=== PATIENT | female | born 2005 | race African-American/Black ===

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

== ENCOUNTER 2023-02-07 13:23 | Emergency (ER) | payer OTHER, SELFPAY ==
[2023-02-07 13:51] VITALS: BP 121/57; PULSE 104; RESP 16; TEMP 37.7; O2SAT 100
[2023-02-07 15:06] LABS: Appearance Urine Cloudy (Clear); Bacteria Urine 4+ /hpf; Bilirubin Urine Negative (Negative); Blood Urine 3+ (Negative); Color Urine Yellow (Yellow); Glucose Urine UA Negative (Negative); Ketones Urine Trace mg/dL (Negative); Leukocyte Esterase Ur 1+ LEU/UL (Negative); Nitrate Urine Negative (Negative); Non Pathogenic Casts 0-2; Protein Urine Negative (Negative); RBC Urine 0-2 /hpf (0-2); Specific Grav Ur 1.019 (1.001-1.035); Squamous Epithelial Cell Urine Moderate /hpf (Few)
[2023-02-07 15:38] LABS: Add Urine Microscopic? YES
--- NOTE | 2023-02-07 16:08 | ED.GENADULT ---
HPI - General Adult General Chief complaint: Upper Respiratory Infection Stated complaint: URI Time Seen by Provider: 02/07/23 14:38 Source: patient Mode of arrival: ambulatory Limitations: no limitations History of Present Illness HPI narrative: This is a 17-year-old female presents to the ED with chief complaint of URI symptoms x3 days. Patient has a sibling who is positive for COVID at home. Complains of cough congestion, runny nose, headaches. Denies fevers, chills, abdominal pain, N/V, chest pain, shortness of breath. Related Data Home Medications Medication Instructions Recorded Confirmed sumatriptan 20 mg/actuation nasal 20 mg intranasal DAILY 03/19/21 03/19/21 spray topiramate 25 mg tablet 25 mg PO HS PRN Headache 03/19/21 03/19/21 Allergies Allergy/AdvReac Type Severity Reaction Status Date / Time No Known Allergies Allergy Verified 03/19/21 17:29 Review of Systems Review of Systems: CONSTITUTIONAL: Denies fever, chills, or sweats. EYES: Denies visual changes, redness, or discharge. ENT: Endorses rhinorrhea, congestion, sore throat. Denies otalgia. CARDIOVASCULAR: Denies chest pain, palpitations, or edema. RESPIRATORY: Endorses cough. Denies dyspnea. GASTROINTESTINAL: Denies abdominal pain, nausea, vomiting, or diarrhea. GENITOURINARY: Denies dysuria or hematuria. SKIN: Denies rash or itching. MUSCULOSKELETAL: Denies back pain, joint pain, or myalgia. NEUROLOGIC: Denies headache, numbness, dizziness, or weakness. PSYCHIATRIC: Denies anxiety or depression. [facility] Past Medical History Medical History (Updated 02/07/23 @ 16:13 by Stevan Stearns PA-C) History of migraine Social History Social History (Updated 03/19/21 @ 17:16 by Cassie Hobbs PA-C) Smoking status: Never smoker Substance use: never Gender identity (if verbalized by the patient): Female Exam Narrative: GENERAL: Well-appearing, well-nourished, and in no acute distress. HEAD: Normocephalic, atraumatic. EYES: PERRLA and EOMI. ENT: Nares clear, no rhinorrhea or epistaxis. Mucous membranes moist. Oropharynx without tonsillar hypertrophy exudate or other lesions. Posterior oropharynx erythema is present. NECK: Supple. No adenopathy or masses. CHEST: No respiratory distress. Clear to auscultation. No wheezes rales or rhonchi. O2 sats 100% on room air. HEART: Regular rate and rhythm. No murmur heard. Normal peripheral pulses. ABDOMEN: Soft, nontender, nondistended, normal active bowel sounds. EXTREMITIES: Normal range of motion. No edema. SKIN: Warm, dry, no rash. NEURO: Alert and oriented x3. No focal deficits. PSYCH: Normal mood and affect. Course Vital Signs Vital signs: Vital Signs Temperature 99.8 F H 02/07/23 13:51 Pulse Rate 104 H 02/07/23 13:51 Respiratory Rate 16 02/07/23 13:51 Blood Pressure 121/57 L 02/07/23 13:51 Pulse Oximetry 100 02/07/23 13:51 Oxygen Delivery Room Air 02/07/23 13:51 Temperature 99.8 F H 02/07/23 13:51 Pulse Rate 104 H 02/07/23 13:51 Respiratory Rate 16 02/07/23 13:51 Blood Pressure 121/57 L 02/07/23 13:51 Pulse Oximetry 100 02/07/23 13:51 Oxygen Delivery Room Air 02/07/23 13:51 Medical Decision Making [facility] Narrative Medical decision making narrative: This is a 17-year-old female with URI symptoms x3 days. Vitals are stable. Slightly febrile at 99.8. Exam is benign. Declines swab as her brother is confirmed positive. RN placed an order for urinalysis due to patient having low back pain. This pain is consistent with body aches with viral syndrome. Very low likelihood of urinary tract infection present. Supportive measures at home discussed. Would like for her to follow-up with her PCP. Return precautions given. Patient is understanding and agreeable with plan for discharge. Rx for guaifenesin given. Vital Signs Vital Signs: Vital Signs Temperature 99.8 F H 02/07/23 13:51 Pulse Rate 104 H 02/07/23 13:51 Respiratory Rat
== END 2023-02-07 16:23 | disposition home or self-care (01) ==
PROVIDERS: Emergency Provider Physician Assistant
DX: J06.9 Acute upper respiratory infection, unspecified (principal)
CPT/HCPCS: 81001; 87086; 87088; 99283

== ENCOUNTER 2025-01-21 14:12 | Emergency (ER) | payer MEDICAID, SELFPAY ==
--- NOTE | 2025-01-21 14:17 | ED_ITS ---
HPI - URI/Sore Throat General Chief Complaint: Upper Respiratory Infection Stated Complaint: shortness of breath Time Seen by Provider: 01/21/25 14:30 Source: patient, RN notes reviewed and old records reviewed Mode of arrival: ambulatory Limitations: no limitations History of Present Illness HPI Narrative: 19-year-old female presents to the [facility] with complaints of intermittent coughing fits for the last 4 months. Saint since he has taken Tylenol. Has not seen her. Denies any chest pain or current shortness of breath. States that she is short of breath after coughing. Onset (ago): month(s) (4) Treatments prior to arrival: acetaminophen Related Data Home Medications ?Medication ?Instructions ?Recorded ?Confirmed ?Last Taken ?Type sumatriptan 20 mg/actuation nasal 20 mg intranasal DAILY 03/19/21 03/19/21 Unknown History spray topiramate 25 mg tablet 25 mg PO HS PRN Headache 03/19/21 03/19/21 Unknown History Allergies Allergy/AdvReac Type Severity Reaction Status Date / Time No Known Allergies Allergy Verified 01/21/25 14:28 Review of Systems Review of Systems: All systems reviewed & are unremarkable except as noted in HPI and below Constitutional: Constitutional: Reports no additional constitutional complaints ENT: Reports system reviewed and no additional complaints, except as documented Cardiovascular: Cardiovascular: Reports no additional cardiovascular complaints, Denies chest pain and Denies dyspnea Respiratory: Respiratory: Reports as per HPI, Denies chest congestion, Reports cough and Denies dyspnea Musculoskeletal: Musculoskeletal: Reports no additional musculoskeletal complaints Integumentary/Breasts: Skin/Breast: Reports system reviewed and no additional complaints, except as docu PMFSH Past Medical History Medical History History of migraine Social History Social History Smoking status: Never smoker Substance use: never Gender identity (if verbalized by the patient): Female Comments At the time of my signature, I reviewed and agree with the nursing past medical, surgical, social, and family history. There is no relevant family history pertinent to the patient complaint. Exam Const: General: cooperative, healthy appearing, comfortable, no acute distress, well developed, alert and well nourished Nutritional Appearance: well nourished Orientation/consciousness: patient oriented x3 Limitations: no limitations HENMT: Head: normal to inspection Ears: hearing grossly normal bilaterally, external ears normal, TM's normal bilaterally, EAC's normal, mastoids normal and no periauricular adenopathy Face/Nose/Sinus: Normal external nose present, Normal nares present and No nasal discharge present Mouth: Yes Normal oral and palatal mucosa present, Yes lip normal, Yes tongue normal and Yes moist mucous membranes Throat: posterior oropharynx normal, uvula midline, postnasal drainage and no uvular edema Eyes: General: appearance normal, both eyes and all related structures Alignment and Position: alignment normal Neck: Neck: normal visual inspection, full ROM, no lymphadenopathy and no meningeal signs Chest: Chest palpation & inspection: normal inspection of the chest Resp: Effort & Inspection: normal respiratory effort and able to speak in complete sentences Auscultation: clear to auscultation bilaterally, no crackles, no rales, no rhonchi and no wheezes Cardio: Rate: regular rate Skin: General skin exam: normal color and no rashes or lesions noted Neuro: General: patient oriented x3, gait normal, moves all extremities and no meningeal signs Cognition (Neuro): normal cognition Speech: normal speech Gait exam (Neuro): Normal gait present Extrem: General: normal to inspection, full ROM, capillary refill normal and normal gait Psych: Appearance: grossly normal and well kempt Mental Status: mental status grossly normal Speech and movement: Normal speech and movement present and Clear speech present Affect: normal affect Attitude: cooperative Course Course Level of Care: Express Care Visit Vital Signs Vital signs: Vital Signs Temperature 98.3 F 01/21/25 14:25 Pulse Rate 104 H 01/21/25 14:25 Respiratory Rate 16 01/21/25 14:25 Blood Pressure 122/91 H 01/21/25 14:25 Pulse Oximetry 99 01/21/25 14:25 Oxygen Delivery Room Air 01/21/25 14:25 Temperature 98.3 F 01/21/25 14:25 Pulse Rate 104 H 01/21/25 14:25 Respiratory Rate 16 01/21/25 14:25 Blood Pressure 122/91 H 01/21/25 14:25 Pulse Oximetry 99 01/21/25 14:25 Oxygen Delivery Room Air 01/21/25 14:25 Reviewed MDM - URI/Sore Throat MDM Narrative Medical decision making narrative: Patient sitting comfortably in exam room. Nontoxic, vitals stable. Patient in no acute distress. Patient presents with intermittent cough with associated with some shortness of breath over the last 4 months. Has not been seen for it in past. Denies any chest pain. No acute findings noted on exam except for postnasal drainage Patient appropriate for outpatient treatment with close follow-up Discharge instructions reviewed with patient, as well as provided in writing per nursing staff. The instructions also include specific and strict return/GO TO THE ER as well as f/u information. All questions have been answered, and the patient deny any further questions with discharge and discharge plan. Some parts of this dictation were generated by voice recognition software and may contain typographical and/or grammatical inaccuracies. Differential Diagnosis Differential diagnosis: Likely upper respiratory infection, otitis media, sinusitis, viral infection, bronchitis, influenza and pharyngitis Critical Care Time Critical Care Time Critical Care Time: No Discharge Plan Discharge Clinical Impression: PND (post-nasal drip) Cough Qualifiers: Cough type: acute Qualified Code(s): R05.1 - Acute cough Patient Disposition: Home, Self-Care Condition: Stable Instructions: Antibiotic Form, Chronic Cough (ED), Postnasal Drip (DC) Additional Instructions: Take Claritin or Zyrtec daily. Using Flonase nasal spray can help with the postnasal drainage Follow-up with primary care provider if no improvement New or worsening symptoms go directly to the emergency room Patient Language: Slovenian Prescriptions: No Action topiramate 25 mg tablet 25 mg PO HS PRN (Reason: Headache) sumatriptan 20 mg/actuation spray,non-aerosol 20 mg INTRANASAL DAILY guaifenesin 200 mg tablet 200 mg PO QID PRN (Reason: cough) Qty: 30 0RF Follow-up/Referrals: UNKNOWN,DOCTOR [Non-Staff] - Stand Alone Forms: Work/School Release IP Time of Disposition: 14:39
[2025-01-21 14:25] VITALS: BP 122/91; PULSE 104; RESP 16; TEMP 36.8; O2SAT 99
--- OUTSIDE RECORDS SUMMARY | 2025-01-21 14:44 | XMS_ITS | Clinical Summary ---
Author Organization [facility] [place] Address [address] [place] [address] Care Team Providers Care Senior Project Architect Name Role Phone Unavailable Primary Care Provider Unavailabl e Medications No known medications Active Problems No known active problems Encounters Date Type Department Care Team Description 01/20/2025 External Device Data [facility] Provider, Abstract 01/20/2025 External Device Data [facility] Provider, Abstract 01/09/2025 External Device Data [facility] Provider, Abstract 01/08/2025 External Device Data [facility] Provider, Abstract 01/05/2025 External Device Data [facility] Provider, Abstract 12/22/2024 External Device Data [facility] Provider, Abstract 11/26/2024 External Device Data [facility] Provider, Abstract 11/25/2024 External Device Data [facility] Provider, Abstract 11/24/2024 External Device Data [facility] Provider, Abstract 11/17/2024 External Device Data [facility] Provider, Abstract from Last 3 Months Social History Tobacco Use Types Packs/Day Years Used Date Smoking Tobacco: Never Assessed Comments No Sex and Gender Information Value Date Recorded Sex Assigned at Not on file Legal Sex Female 3:29 PM SOLUTION ANALYST Gender Identity Not on file Sexual Orientation Not on file Last Filed Vital Signs Vital Sign Reading Time Taken Comments Blood Pressure 110/76 09/18/2024 3:49 PM SOLUTION ANALYST Pulse 65 09/18/2024 3:49 PM SOLUTION ANALYST Temperature 37.3 C (99.2 F) 09/18/2024 3:49 PM SOLUTION ANALYST Respiratory Rate 18 09/18/2024 3:49 PM SOLUTION ANALYST Oxygen Saturation 99% 09/18/2024 3:49 PM SOLUTION ANALYST Inhaled Oxygen Concentration - - Weight 62.1 kg (136 lb 12.8 oz) 09/18/2024 3:49 PM SOLUTION ANALYST Height 162.6 cm (5' 4 ) 09/18/2024 3:49 PM SOLUTION ANALYST Body Mass Index 23.48 09/18/2024 3:49 PM SOLUTION ANALYST Plan of Treatment Health Maintenance Due Date Last Done Comments CHLAMYDIA SCREENING (ANNUAL) 11-24 YEARS 2014 HPV VACCINES (1 - 3-dose series) 2018 DTAP/TDAP/TD VACCINES (1 - Tdap) 2022 HEPATITIS B VACCINES (1 of 3 - 19+ 3-dose series) 12/06 INFLUENZA VACCINE (#1) 2024 CERVICAL CANCER SCREENING 2024 PAP SMEAR 2024 PAP SMEAR 2024
--- OUTSIDE RECORDS SUMMARY | 2025-01-21 14:44 | XMS_ITS | Encounter Summary ---
Author Organization [facility] Address [address] [place] [address] Care Team Providers Care Electrical Manager Name Role Phone Unavailable Primary Care Provider Unavailabl e Encounter Details Date Type Department Care Team (Late st Contact Info) Description 01/20/2025 External Device Data [facility] Provider, Abstract NO ADDRESS ON FILE Social History Tobacco Use Types Packs/Day Years Used Date Smoking Tobacco: Never Assessed Comments No Sex and Gender Information Value Date Recorded Sex Assigned at Not on file Legal Sex Female 3:29 PM MANAGER BODY Gender Identity Not on file Sexual Orientation Not on file documented as of this encounter Plan of Treatment Not on file documented as of this encounter Visit Diagnoses Not on filedocumented in this encounter
--- OUTSIDE RECORDS SUMMARY | 2025-01-21 14:44 | XMS_ITS | Encounter Summary ---
Author Organization [facility] Address 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
== END 2025-01-21 14:41 | disposition home or self-care (01) ==
PROVIDERS: Emergency Provider Nurse Practitioner
DX: R09.82 Postnasal drip (principal)
CPT/HCPCS: 99211; G0463

== ENCOUNTER 2025-09-09 12:56 | Emergency (ER) | payer SELFPAY ==
--- OUTSIDE RECORDS SUMMARY | 2024-09-24 04:00 | XMS_ITS | Continuity of Care Document ---
Author Organization [facility] Address [address] [place] [address] Phone Care Team Providers Care Ekg Monitor Tech Name Role Phone Unavailable Unavailable Unavailable Unavailable Unavailable Unavailable Procedures Procedure Date Caries Risk Assess & Doc High Risk Limit Oral Evaluation- problem focused N Periapical Radiographic, first Image Sep Dental Bitewing Radiographic, One Image Extraction erupted tooth or exposed root Advance Directives Directive Yes / No Effective Date File Name No Information Encounters Encounter Description Practice Location Reason(s) For Visit Diagnoses Date Provider Providers Copied on Encounter [facility] , [address], [place], [place], [id number], tel:[phone] [facility] Encounter for dental exam and cleaning w abnormal findingsDental caries on smooth surface penetrating into pulp No Information Referring Provider: Carrie Man [address], [place], [address] . tel:[phone] Family History Family Member Type Diagnosis Age At Onset No Information Payers Payer name Insurance type Covered republican ID Authoriza tion(s) No Information Social History Type Description Quantity Date Captured Comments Sex Female Smoking Status No Information Chief Complaint And Reason For Visit No Information Reason For Referral Reason For Referral No Information History Of Present Illness Encounter Date Complaint History Of Prese nt Illness No Information Functional Status Date Functional Assessmen t No Information Instructions Date Instruction Additional Infor mation No Information Assessments Type Assessment Date No Information Patient Care Teams Name Effective Dates (start - stop) Status Members No Information
--- OUTSIDE RECORDS SUMMARY | 2024-09-24 04:00 | XMS_ITS | Continuity of Care Document ---
Author Organization [facility] Address [address] [place] [address] Phone Care Team Providers Care Microfilming Document Preparer Name Role Phone Unavailable Unavailable Unavailable Unavailable [...] Diagnoses Date Provider Providers Copied on Encounter [facility] , [address], [place], [place], [id number], tel:[phone] [facility] Encounter for dental exam and cleaning w abnormal findingsDental caries on smooth surface penetrating into pulp No Information Referring Provider: Carrie Man [address], [place], [address] . tel:[phone] Family History Family Member Type Diagnosis Age At Onset No Information Payers Payer name Insurance type Covered libertarian ID Authoriza tion(s) No Information Social History [...]
--- NOTE | ~2025-09-09 | CT_ITS ---
EXAM/PROCEDURE: CT facial & cervical spine wo HISTORY: head injury COMPARISON: None available. TECHNIQUE: Cervical spine and facial bone CT performed FINDINGS: No fracture lucency or traumatic malalignment seen within the cervical spine. Straightening of the cervical spine noted. No gross acute or aggressive bone or soft tissue process seen within the cervical spine. In the facial bones, no facial bone fracture seen. No suspicious radiopaque foreign body seen. IMPRESSION: No fracture involving cervical spine or facial bones. Straightening of the cervical spine may be associated pain or spasm. Reviewed, dictated and finalized at location A. TUMBLER IMPRESSION: No fracture involving cervical spine or facial bones. Straightening of the cerv ical spine may be associated pain or spasm.
--- NOTE | ~2025-09-09 | CT_ITS ---
EXAMINATION: CT BRAIN W/O DATE: 09/09/2025 15:21 INDICATION: Head injury. TECHNIQUE: Computed tomography (CT) of the head was performed without intravenous contrast. The dose-length product was 529.67 mGy-cm. COMPARISON: No prior studies for comparison. FINDINGS: Normal brain parenchymal volume for age. Normal scott-white differentiation. No acute intracranial hemorrhage, infarction, mass or mass effect. No ventriculomegaly or midline shift. Midline sagittal images demonstrate a normal corpus callosum, craniovertebral junction and sella turcica. Basilar cisterns are patent. Paranasal sinuses and mastoids are pneumatized. No depressed skull fractures. IMPRESSION: 1. No acute intracranial abnormality. Reviewed, dictated and finalized at location O. ITORY SALES REPRESENTATIVE
[2025-09-09 13:28] VITALS: BP 113/76; PULSE 70; RESP 16; TEMP 36.9; O2SAT 100
--- NOTE | 2025-09-09 15:05 | ED.FALL ---
HPI - Fall General Chief Complaint: Fall <Cassie Hobbs PA-C - Last Filed: 09/11/25 15:48> Stated Complaint: fall off skateboard <Cassie Hobbs PA-C - Last Filed: 09/11/25 15:48> Time Seen by Provider: 09/09/25 15:05 <Cassie Hobbs PA-C - Last Filed: 09/11/25 15:48> Focused HPI: This is a 19 year old female that presents to the ER after falling off her skateboard. Reports she slipped because of her shoes and hit her face on the ground. She did not lose consciousness. Reports headache, jaw pain. Denies vision changes, vomiting, numbness. GENERAL: Well-appearing, well-nourished, and in no acute distress. HEAD: Normocephalic. Contusion to the chin CHEST: Clear to auscultation. ?No respiratory distress. HEART: Regular rate and rhythm.? NEURO: ?Alert and oriented x3. Patient screened in triage and initial orders placed.? ?Additional care and disposition to be based upon?diagnostic testing and treatment. <Cassie Hobbs PA-C - Last Filed: 09/11/25 15:48> Focused HPI: This is a 19 year old female that presents to the ER after falling off her skateboard. Reports she slipped because of her shoes and hit her face on the ground. She did not lose consciousness. Reports headache, jaw pain. Denies vision changes, vomiting, numbness. GENERAL: Well-appearing, well-nourished, and in no acute distress. HEAD: Normocephalic. Contusion to the chin CHEST: Clear to auscultation. ?No respiratory distress. HEART: Regular rate and rhythm.? NEURO: ?Alert and oriented x3. Patient screened in triage and initial orders placed.? ?Additional care and disposition to be based upon?diagnostic testing and treatment. <SPENCER Calzada Last Filed: 09/13/25 11:34> Related Data Home Medications: Home Medications ?Medication ?Instructions ?Recorded ?Confirmed ?Last Taken ?Type sumatriptan 20 mg/actuation nasal 20 mg intranasal DAILY 03/19/21 03/19/21 Unknown History spray topiramate 25 mg tablet 25 mg PO HS PRN Headache 03/19/21 03/19/21 Unknown History <Cassie Hobbs PA-C - Last Filed: 09/11/25 15:48> Allergies/Adverse Reactions: Allergies Allergy/AdvReac Type Severity Reaction Status Date / Time No Known Allergies Allergy Verified 09/09/25 12:59 <Cassie Hobbs PA-C - Last Filed: 09/11/25 15:48> Review of Systems Review of Systems: All systems reviewed & are unremarkable except as noted in HPI and below <SPENCER Calzada Last Filed: 09/13/25 11:34> PMFSH Past Medical History Medical History: Medical History History of migraine <Cassie Hobbs PA-C - Last Filed: 09/11/25 15:48> Social History Social History: Social History Substance use: never Gender identity (if verbalized by the patient): Female <Cassie Hobbs PA-C - Last Filed: 09/11/25 15:48> Exam Narrative: GENERAL: Well-appearing, well-nourished, and in no acute distress. HEAD: Normocephalic, atraumatic. EYES: PERRLA and EOMI. ENT: Nares clear, no rhinorrhea or epistaxis. Mucous membranes moist. Oropharynx without tonsillar hypertrophy exudate. 1 cm inferior inner lip laceration on the anterior lip. Bilateral TMs pearly scott non-bulging NECK: Supple. No adenopathy or masses. No carotid bruits or JVD CHEST: Clear to auscultation. No respiratory distress. No wheezes rales or rhonchi HEART: Regular rate and rhythm. No murmur heard. Normal peripheral pulses. ABDOMEN: Soft, nontender, nondistended, normal active bowel sounds. EXTREMITIES: Normal range of motion. No edema. SKIN: Warm, dry, no rash. NEURO: No focal deficits. Alert and oriented x3. PSYCH: Normal mood and affect <SPENCER Calzada Last Filed: 09/13/25 11:34> Course Vital Signs Vital signs: Vital Signs Temperature 98.4 F 09/09/25 13:28 Pulse Rate 70 09/09/25 13:28 Respiratory Rate 16 09/09/25 13:28 Blood Pressure 113/76 09/09/25 13:28 Pulse Oximetry 100 09/09/25 13:28 Oxygen Delivery Room Air 09/09/25 13:28 Temperature 98.4 F 09/09/25 13:28 Pulse Rate 77 09/09/25 18:12 Respiratory Rate 15 09/09/25 18:12 Blood Pressure 121/63 09/09/25 18:12 Pulse Oximetry 100 09/09/25 18:12 Oxygen Delivery Room Air 09/09/25 13:28 <Cassie Hobbs PA-C - Last Filed: 09/11/25 15:48> Vital Signs Temperature 98.4 F 09/09/25 13:28 Pulse Rate 70 09/09/25 13:28 Respiratory Rate 16 09/09/25 13:28 Blood Pressure 113/76 09/09/25 13:28 Pulse Oximetry 100 09/09/25 13:28 Oxygen Delivery Room Air 09/09/25 13:28 Temperature 98.4 F 09/09/25 13:28 Pulse Rate 77 09/09/25 18:12 Respiratory Rate 15 09/09/25 18:12 Blood Pressure 121/63 09/09/25 18:12 Pulse Oximetry 100 09/09/25 18:12 Oxygen Delivery Room Air 09/09/25 13:28 <SPENCER Calzada Last Filed: 09/13/25 11:34> Procedures Laceration Laceration 1: Date: 09/10/25 <SPENCER Calzada Last Filed: 09/13/25 11:34> Time: 10:00 <SPENCER Calzada Last Filed: 09/13/25 11:34> Size (cm): 1 <SPENCER Calzada Last Filed: 09/13/25 11:34> Description: other <SPENCER Calzada Last Filed: 09/13/25 11:34> Depth: simple, single layer <SPENCER Calzada Last Filed: 09/13/25 11:34> Local Anesthetic: lidocaine 1% <SPENCER Calzada - Last Filed: 09/13/25 11:34> Amount of anesthesia used (mL): 3 <SPENCER Calzada - Last Filed: 09/13/25 11:34> ====== Skin Level ======: Skin layer closed with: vicryl <SPENCER Calzada - Last Filed: 09/13/25 11:34> Size (cm): 5-0 <SPENCER Calzada Last Filed: 09/13/25 11:34> Number of sutures: 2 <SPENCER Calzada - Last Filed: 09/13/25 11:34> ====== Subcutaneous Layer ======: ====== Muscle Layer ======: ====== Tendon Layer ======: MDM - Fall MDM Narrative Medical decision making narrative: This is a 19 year old female that presents to the ER after falling off her skateboard. Reports she slipped because of her shoes and hit her face on the ground. She did not lose consciousness. Reports headache, jaw pain. Denies vision changes, vomiting, numbness. Upon my initial assessment, patient was agitated but demonstrated no focal neurological impairments. CT head neck negative. No focal neurological deficits. Two sutures placed in one cm inferior inner lip laceration under local anesthesia using lidocaine. Toradol given for pain control. Patient discharged home with proper care instructions. <SPENCER Calzada - Last Filed: 09/13/25 11:34> Medical Records Attestation: I reviewed the patient's medical records. <SPENCER Calzada Last Filed: 09/13/25 11:34> Lab Data Attestation: I reviewed the patient's lab results. <SPENCER Calzada Last Filed: 09/13/25 11:34> Imaging Data Attestation: I personally reviewed and interpreted this imaging study as follows: <SPENCER Calzada Last Filed: 09/13/25 11:34> Radiologist's impression: ITS Impressions Head CT 09/09/25 15:24 IMPRESSION: 1. No acute intracranial abnormality. Head/Cervical Spine/Facial Bones CT 09/09/25 15:29 IMPRESSION: No fracture involving cervical spine or facial bones. Straightening of the cervical spine may be associated pain or spasm. <SPENCER Calzada Last Filed: 09/13/25 11:34> Discharge Plan Discharge Clinical Impression: Fall <PADMINI Tavares Last Filed: 09/11/25 15:48> Patient Disposition: Home <PADMINI Tavares Last Filed: 09/11/25 15:48> Condition: Stable <PADMINI Tavares Last Filed: 09/11/25 15:48> Instructions: Care For Your Absorbable Stitches (ED) <PADMINI Tavares Last Filed: 09/11/25 15:48> Additional Instructions: Return to the emergency department if you experience fever, chest pain, shortness of breath, abdominal pain with nausea and vomiting, weakness, numbness/tingling, or any other symptoms that are concerning to you. Alternate acetaminophen and ibuprofen as needed for pain management. Follow up with primary care doctor <PADMINI Tavares Last Filed: 09/11/25 15:48> Patient Language: Gibraltarian <PADMINI Tavares Last Filed: 09/11/25 15:48> Prescriptions: No Action topiramate 25 mg tablet 25 mg PO HS PRN (Reason: Headache) sumatriptan 20 mg/actuation spray,non-aerosol 20 mg INTRANASAL DAILY guaifenesin 200 mg tablet 200 mg PO QID PRN (Reason: cough) Qty: 30 0RF <PADMINI Tavares Filed: 09/11/25 15:48> Follow-up/Referrals: PHYSICIAN,DRYING TUMBLER OPERATOR [Primary Care Provider, Internal Medicine] <PADMINI Tavares Last Filed: 09/11/25 15:48>
[2025-09-09] MEDS: TETANUS,DIPHTHERIA,AC PERTUSSIS ADULT (0.5 ML) BOOSTRIX IM (16:08)
--- NOTE | 2025-09-09 17:00 | PC.NURSE ---
pt was moved from room 19 to 15 due to a critical EMS coming in. pt was educated that she was not placed in that room due to psychiatric behavior. pt family member stated I can't believe we were placed in the looney bin room. Pt mother was on the phone with family stating they were upset they are in psych room and that they have not been seen by EDP. pt and family were visibly upset. This RN explained that a provider would see them as fast as they could.
[2025-09-09] MEDS: KETOROLAC (*BKC) 60 MG/2 ML VIAL IM (17:42)
[2025-09-09 18:12] VITALS: BP 121/63; PULSE 77; RESP 15; O2SAT 100
--- OUTSIDE RECORDS SUMMARY | 2025-09-09 19:48 | XMS_ITS | Clinical Summary ---
Author Organization [facility] [place] Address [address] [facility] [facility] [place] [address] Care Team Providers Care Corporation Pilot Name Role Phone Unavailable Primary Care Provider Unavailabl e Medications No known medications Active Problems No known active problems Encounters Date Type Department Care Team Description 08/24/2025 External Device Data [facility] ABSTRACTION Provider, Abstract 07/20/2025 External Device Data [facility]STRACTION Provider, Abstract from Last 3 Months Social History Tobacco Use Types Packs/Day Years Used Date Smoking Tobacco: Never Assessed Comments No Sex and Gender Information Value Date Recorded Sex Assigned at Not on file 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 Gender Identity Not on file Sexual Orientation Not on file Last Filed Vital Signs Vital Sign Reading Time Taken Comments Blood Pressure 110/76 09/18/2024 3:49 PM OYSTER FISHERMAN Pulse 65 09/18/2024 3:49 PM OYSTER FISHERMAN Temperature 37.3 C (99.2 F) 09/18/2024 3:49 PM OYSTER FISHERMAN Respiratory Rate 18 09/18/2024 3:49 PM OYSTER FISHERMAN Oxygen Saturation 99% 09/18/2024 3:49 PM OYSTER FISHERMAN Inhaled Oxygen Concentration - - Weight 62.1 kg (136 lb 12.8 oz) 09/18/2024 3:49 PM OYSTER FISHERMAN Height 162.6 cm (5' 4) 09/18/2024 3:49 PM OYSTER FISHERMAN Body Mass Index 23.48 09/18/2024 3:49 PM OYSTER FISHERMAN Plan of Treatment Health Maintenance Due Date Last Done Comments CHLAMYDIA SCREENING (ANNUAL) 11-24 YEARS 2014 HPV VACCINES (1 - 3-dose series) 2018 DTAP/TDAP/TD VACCINES (1 - Tdap) 2022 HEPATITIS B VACCINES (1 of 3 - 19+ 3-dose series) 12/06 CERVICAL CANCER SCREENING 2024 HPV/Cotest (21-29) 2024 PAP SMEAR 2024 INFLUENZA VACCINE (#1) 2025 Insurance MEDICAID [place]
--- OUTSIDE RECORDS SUMMARY | 2025-09-09 20:58 | XMS_ITS | Clinical Summary ---
Author Organization [facility] [place] Address [address] 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 Gender Identity Not on file Sexual Orientation Not on file Last Filed Vital Signs Vital Sign Reading Time Taken Comments Blood Pressure 110/76 09/18/2024 3:49 PM FIELD HUMAN RESOURCES MANAGER Pulse 65 09/18/2024 3:49 PM FIELD HUMAN RESOURCES MANAGER Temperature 37.3 C (99.2 F) 09/18/2024 3:49 PM FIELD HUMAN RESOURCES MANAGER Respiratory Rate 18 09/18/2024 3:49 PM FIELD HUMAN RESOURCES MANAGER Oxygen Saturation 99% 09/18/2024 3:49 PM FIELD HUMAN RESOURCES MANAGER Inhaled Oxygen Concentration - - Weight 62.1 kg (136 lb 12.8 oz) 09/18/2024 3:49 PM FIELD HUMAN RESOURCES MANAGER Height 162.6 cm (5' 4) 09/18/2024 3:49 PM FIELD HUMAN RESOURCES MANAGER Body Mass Index 23.48 09/18/2024 3:49 PM FIELD HUMAN RESOURCES MANAGER Plan of Treatment Health Maintenance Due Date Last Done Comments CHLAMYDIA SCREENING (ANNUAL) 11-24 YEARS 2014 HPV VACCINES (1 - 3-dose series) 2018 DTAP/TDAP/TD VACCINES (1 - Tdap) 2022 HEPATITIS B VACCINES (1 of 3 - 19+ 3-dose series) 12/06 CERVICAL CANCER SCREENING 2024 HPV/Cotest (21-29) 2024 PAP SMEAR 2024 INFLUENZA VACCINE (#1) 2025 Insurance MEDICAID [place]
== END 2025-09-09 18:13 | disposition home or self-care (01) ==
DX: S01.511A Laceration without foreign body of lip, initial encounter (principal); Z23 Encounter for immunization; V00.131A Fall from skateboard, initial encounter; Y93.51 Activity, roller skating (inline) and skateboarding
CPT/HCPCS: 12011; 70450; 70486; 72125; 90471; 90715; 96372; 99284; J1885